=== PATIENT | male | born 1960 | race Caucasian/White ===

== ENCOUNTER 2020-04-02 12:47 | Observation (INO) ==
[2020-04-02 13:31] LABS: Basophils % 0.4 %; Eosinophils # 0.1 K/mcL (0.0-0.6); Eosinophils % 0.6 %; Hematocrit 47.5 % (37.5-50.1); Hemoglobin 15.6 g/dL (12.9-16.9); Immature Granulocytes % 0.2 % (0-4); Lymphocytes # 1.9 K/mcL (0.6-4.6); Lymphocytes % 18.4 %; Mean Corpuscular HGB Conc 32.8 g/dL (31.6-35.5); Mean Corpuscular Hemoglobin 27.4 pg (28.0-33.3); Mean Corpuscular Volume 83.3 fL (83.0-100.0); Mean Platelet Volume 9.9 fL (9.4-12.4); Monocytes # 0.5 K/mcL (0.0-1.3); Monocytes % 5.1 %; Neutrophils # 7.8 K/mcL (1.6-8.9); Platelet Count 301 K/mcL (140-400); Red Cell Distribution Width 13.3 % (11.5-14.5); Segmented Neutrophils % 75.3 %; White Blood Count 10.3 K/mcL (4.3-11.1)
[2020-04-02 13:34] LABS: Bilirubin,Urine Negative (Negative); Blood,Urine Negative (Negative); Clarity,Urine Clear (Clear); Color,Urine Colorless (Yellow); Glucose,Urine (UA) 30 mg/dL (Normal); Ketones,Urine Negative (Negative); Leukocyte Esterase,Urine Negative (Negative); Mucus,Urine Few per lpf (None-Few); Nitrite,Urine Negative (Negative); PH,Urine 7.5 pH Units (5.0-8.0); Protein,Urine Negative (Neg-Trace); Specific Gravity,Urine 1.007 (1.010-1.025); Urobilinogen,Urine Normal (Normal); WBC,Urine 0-3 per hpf (0-3)
[2020-04-02 13:36] LABS: Prothrombin Time 10.9 Seconds (9.4-12.1)
[2020-04-02 13:38] LABS: Activated Partial Thrombo Time 36.3 Seconds (26.0-36.0)
[2020-04-02 13:52] LABS: BUN/Creatinine Ratio 13 (6-26); Blood Urea Nitrogen 13 mg/dL (8-23); Calcium 9.3 mg/dL (8.6-10.3); Carbon Dioxide 25 mEq/L (23-29); Chloride 98 mEq/L (98-107); Glucose 196 mg/dL (70-105); Osmolality,Calculated 282 (280-300); Potassium 3.5 mEq/L (3.5-5.1); Sodium 133 mEq/L (136-145); Troponin I < 0.03 ng/mL (< 0.04); eGFR For African Americans > 60 (> 60); eGFR For Non-African Americans > 60 (> 60)
[2020-04-02] MEDS ORDERED: Perflutren Lipid Microsphere 1.3 ML in 0.9 % Sodium Chloride 8.7 ML IVP PRN (14:40)
[2020-04-02] MEDS ORDERED: Acetaminophen 325 MG TABLET PO PRN (14:40)
[2020-04-02] MEDS ORDERED: Ondansetron ODT 4 MG TAB.RAPDIS SL PRN (14:40)
[2020-04-02] MEDS ORDERED: Naloxone 0.4 MG/ML INJ IVP PRN (14:40)
[2020-04-02] MEDS ORDERED: MOM Conc 10 ML UD.LIQ PO PRN (17:13)
[2020-04-02] MEDS: *HR* Heparin 5,000 UNIT/ML VIAL SQ SCH (17:51)
[2020-04-03] MEDS: *HR* Heparin 5,000 UNIT/ML VIAL SQ SCH ×2 (05:55→16:35)
[2020-04-03 08:20] LABS: Hematocrit 49.5 % (37.5-50.1); Hemoglobin 16.1 g/dL (12.9-16.9); Mean Corpuscular HGB Conc 32.5 g/dL (31.6-35.5); Mean Corpuscular Hemoglobin 27.9 pg (28.0-33.3); Mean Corpuscular Volume 85.6 fL (83.0-100.0); Mean Platelet Volume 9.7 fL (9.4-12.4); Platelet Count 265 K/mcL (140-400); Red Blood Count 5.78 M/mcL (4.19-5.50); Red Cell Distribution Width 13.5 % (11.5-14.5); White Blood Count 8.1 K/mcL (4.3-11.1)
[2020-04-03 08:41] LABS: BUN/Creatinine Ratio 11 (6-26); Blood Urea Nitrogen 11 mg/dL (8-23); Calcium 9.9 mg/dL (8.6-10.3); Carbon Dioxide 29 mEq/L (23-29); Chloride 99 mEq/L (98-107); Glucose 109 mg/dL (70-105); Magnesium 2.2 mg/dL (1.6-2.6); Osmolality,Calculated 282 (280-300); Potassium 3.9 mEq/L (3.5-5.1); Sodium 136 mEq/L (136-145); Troponin I < 0.03 ng/mL (< 0.04); eGFR For African Americans > 60 (> 60); eGFR For Non-African Americans > 60 (> 60)
[2020-04-03] MEDS ORDERED: Regadenoson 0.4 MG/5 ML SYRINGE IVP ONE (08:53)
[2020-04-03] MEDS: Zinc Sulfate 220 MG CAPSULE PO SCH (11:36)
[2020-04-03] MEDS: Aspirin Enteric Coated 325 MG Tablet PO SCH (11:36)
[2020-04-03] MEDS: Loratadine 10 MG TABLET PO SCH (11:36)
[2020-04-03] MEDS: lisinopriL 10 MG TABLET PO SCH (11:36)
[2020-04-03] MEDS: Nicotine 21 MG PATCH.TD24 TD SCH (16:33)
[2020-04-04] MEDS: *HR* Heparin 5,000 UNIT/ML VIAL SQ SCH (05:01)
[2020-04-04 05:31] LABS: Hematocrit 47.6 % (37.5-50.1); Hemoglobin 15.7 g/dL (12.9-16.9); Mean Corpuscular Hemoglobin 27.4 pg (28.0-33.3); Mean Corpuscular Volume 82.9 fL (83.0-100.0); Mean Platelet Volume 9.4 fL (9.4-12.4); Platelet Count 243 K/mcL (140-400); Red Blood Count 5.74 M/mcL (4.19-5.50); Red Cell Distribution Width 13.6 % (11.5-14.5); White Blood Count 9.5 K/mcL (4.3-11.1)
[2020-04-04 05:39] LABS: BUN/Creatinine Ratio 15 (6-26); Blood Urea Nitrogen 13 mg/dL (8-23); Calcium 9.2 mg/dL (8.6-10.3); Carbon Dioxide 28 mEq/L (23-29); Chloride 101 mEq/L (98-107); Glucose 95 mg/dL (70-105); Osmolality,Calculated 282 (280-300); Sodium 136 mEq/L (136-145); eGFR For African Americans > 60 (> 60); eGFR For Non-African Americans > 60 (> 60)
[2020-04-04] MEDS ORDERED: Nitroglycerin 0.4 MG TAB.SUBL SL PRN (07:34)
[2020-04-04] MEDS: lisinopriL 10 MG TABLET PO SCH (08:52)
[2020-04-04] MEDS: Aspirin Enteric Coated 325 MG Tablet PO SCH (08:52)
[2020-04-04] MEDS: Loratadine 10 MG TABLET PO SCH (08:52)
[2020-04-04] MEDS: Nicotine 21 MG PATCH.TD24 TD SCH (08:52)
[2020-04-04] MEDS: Zinc Sulfate 220 MG CAPSULE PO SCH (08:53)
[2020-04-04] MEDS ORDERED: 0.9 % Sodium Chloride 1,000 ML ONE ×2 (11:57→12:02)
[2020-04-04] MEDS ORDERED: Heparin 1,000 UNITS/500 mL 500 ML ONE (11:57)
[2020-04-04] MEDS ORDERED: *HR* Heparin 10,000 UNIT/10 ML VIAL ONE (11:57)
[2020-04-04] MEDS ORDERED: ISOVUE-370 200 ML INFUS..BTL ONE (11:57)
[2020-04-04] MEDS ORDERED: Nitroglycerin 1,000 MCG/10 ML VIAL IV ONE (11:57)
[2020-04-04] MEDS ORDERED: *HR* FentaNYL (PF) 100 MCG/2 ML VIAL ONE (12:26)
[2020-04-04] MEDS ORDERED: *HR* Midazolam HCl 2 MG/2 ML VIAL ONE (12:26)
[2020-04-04] MEDS ORDERED: 0.9 % Sodium Chloride 1,000 ML IVC SCH (14:00)
[2020-04-04] MEDS ORDERED: carvediloL 6.25 MG TABLET PO SCH (17:00)
[2020-04-04 17:27] VITALS: BP 143/78
[2020-04-05] MEDS ORDERED: Aspirin Enteric Coated 81 MG Tablet PO SCH (09:00)
== END 2020-04-04 18:17 | disposition home or self-care (01) ==
LOC: 3BNU 12:47 → EMEROOARM 12:47 → SUATTDRO 15:22 → 3BNU 16:21
PROVIDERS: ADMIT Pharmacist; ATTEND Nurse Practitioner Adult Health

== ENCOUNTER 2022-02-16 21:18 | Observation (INO) ==
[2022-02-17] MEDS ORDERED: Iopamidol - 370 500 ML MLS IVP ONE (00:51)
[2022-02-17 01:41] LABS: Basophils % 0.2 %; Eosinophils # 1.9 K/mcL (0.0-0.6); Eosinophils % 13.2 %; Hematocrit 48.9 % (37.5-50.1); Hemoglobin 16.5 g/dL (12.9-16.9); Immature Granulocytes % 0.4 % (0-4); Lymphocytes # 1.9 K/mcL (0.6-4.6); Lymphocytes % 13.3 %; Mean Corpuscular HGB Conc 33.7 g/dL (31.6-35.5); Mean Corpuscular Hemoglobin 28.1 pg (28.0-33.3); Mean Corpuscular Volume 83.3 fL (83.0-100.0); Mean Platelet Volume 9.5 fL (9.4-12.4); Monocytes # 0.9 K/mcL (0.0-1.3); Monocytes % 6.2 %; Neutrophils # 9.4 K/mcL (1.6-8.9); Platelet Count 259 K/mcL (140-400); Red Blood Count 5.87 M/mcL (4.19-5.50); Segmented Neutrophils % 66.7 %; White Blood Count 14.1 K/mcL (4.3-11.1)
[2022-02-17] MEDS ORDERED: *HR* HYDROmorphone (PF) 1 MG/ML SYRINGE IVP ONE (01:46)
[2022-02-17] MEDS ORDERED: Ondansetron 4 MG/2 ML VIAL IVP ONE (01:46)
[2022-02-17] MEDS ORDERED: 0.9 % Sodium Chloride 1,000 ML IVC ONE (01:46)
[2022-02-17 01:49] LABS: Albumin 4.5 g/dL (3.5-5.7); Albumin/Globulin Ratio 1.3 (1.1-2.2); Bilirubin,Direct 0.3 mg/dL (0.0-0.2); Bilirubin,Total 1.3 mg/dL (0.3-1.0); Calcium 9.8 mg/dL (8.6-10.3); Globulin 3.4 g/dL (2.4-3.5); Potassium 3.7 mEq/L (3.5-5.1); Total Protein 7.9 g/dL (6.4-8.9)
[2022-02-17] MEDS ORDERED: Ondansetron 4 MG/2 ML VIAL IVP PRN (03:21)
[2022-02-17] MEDS ORDERED: Naloxone 0.4 MG/ML INJ IVP PRN (03:21)
[2022-02-17 04:34] LABS: Adenovirus Not Detected (Not Detect); Bordetella Pertussis Not Detected (Not Detect); Chlamydophila pneumoniae Not Detected (Not Detect); Coronavirus 229E Not Detected (Not Detect); Coronavirus HKU1 Not Detected (Not Detect); Coronavirus NL63 Not Detected (Not Detect); Coronavirus OC43 Not Detected (Not Detect); Human Metapneumovirus Not Detected (Not Detect); Human Rhinovirus/Enterovirus Not Detected (Not Detect); Influenza A Subtype 2009 H1 Not Detected (Not Detect); Influenza B Not Detected (Not Detect); Mycoplasma pneumoniae Not Detected (Not Detect); Parainfluenza Virus 1 Not Detected (Not Detect); Parainfluenza Virus 2 Not Detected (Not Detect); Parainfluenza Virus 3 Not Detected (Not Detect); Parainfluenza Virus 4 Not Detected (Not Detect); Respiratory Syncytial Virus Not Detected (Not Detect); SARS-CoV-2 Not Detected (Not Detect)
[2022-02-17] MEDS ORDERED: Morphine Sulfate 2 MG/ML SYRINGE IVP PRN (04:45)
[2022-02-17] MEDS: 0.9 % Sodium Chloride 1,000 ML IVC SCH ×2 (04:51→14:05)
[2022-02-17 07:11] LABS: Bacteria,Urine Few per hpf (None-Few); Bilirubin,Urine Negative (Negative); Blood,Urine Negative (Negative); Clarity,Urine Clear (Clear); Color,Urine Yellow (Yellow); Glucose,Urine (UA) Normal (Normal); Hyaline Casts,Urine Few per lpf (None Seen); Ketones,Urine Trace mg/dL (Negative); Leukocyte Esterase,Urine Negative (Negative); Mucus,Urine Few per lpf (None-Few); Nitrite,Urine Negative (Negative); PH,Urine 6.5 pH Units (5.0-8.0); Protein,Urine Trace mg/dL (Neg-Trace); RBC,Urine 0-3 per hpf (0-3); Specific Gravity,Urine > 1.030 (1.010-1.025); Urobilinogen,Urine Normal (Normal); WBC,Urine 0-3 per hpf (0-3)
[2022-02-17 09:12] LABS: INR 1.1; Prothrombin Time 12.4 Seconds (9.4-12.1)
[2022-02-17 09:24] LABS: Magnesium 1.5 mg/dL (1.6-2.6); Phosphorous 3.7 mg/dL (2.7-4.5)
[2022-02-17 09:37] LABS: Thyroid Stimulating Hormone 0.99 mcIU/mL (0.340-5.600)
[2022-02-17] MEDS: carvediloL 6.25 MG TABLET PO SCH ×2 (10:48→17:19)
[2022-02-17] MEDS: Pantoprazole 40 MG VIAL IVP SCH (10:48)
[2022-02-17] MEDS: Aspirin Enteric Coated 81 MG Tablet PO SCH ×2 (10:48→23:30)
[2022-02-17] MEDS: Fluticasone Propionate Nasal 50 MCG/SPRAY BOTTLE NS SCH (10:52)
[2022-02-17] MEDS ORDERED: Acetaminophen 325 MG TABLET PO PRN (21:11)
[2022-02-17] MEDS ORDERED: Ipratropium/Albuterol Neb 3 ML IH PRN (22:00)
[2022-02-17] MEDS: *HR* Heparin 5,000 UNIT/ML VIAL SQ SCH (23:30)
[2022-02-18 02:29] LABS: Basophils % 0.4 %; Eosinophils # 1.7 K/mcL (0.0-0.6); Eosinophils % 21.7 %; Hematocrit 38.8 % (37.5-50.1); Immature Granulocytes % 0.2 % (0-4); Lymphocytes # 1.9 K/mcL (0.6-4.6); Lymphocytes % 23.8 %; Mean Corpuscular HGB Conc 32.7 g/dL (31.6-35.5); Mean Corpuscular Volume 85.7 fL (83.0-100.0); Mean Platelet Volume 9.6 fL (9.4-12.4); Monocytes # 0.5 K/mcL (0.0-1.3); Monocytes % 6.6 %; Neutrophils # 3.8 K/mcL (1.6-8.9); Platelet Count 183 K/mcL (140-400); Red Blood Count 4.53 M/mcL (4.19-5.50); Segmented Neutrophils % 47.3 %
[2022-02-18 02:34] LABS: Hemoglobin 12.7 g/dL (12.9-16.9)
[2022-02-18 02:51] LABS: Alanine Aminotransferase 25 Units/L (7-52); Albumin 3.4 g/dL (3.5-5.7); Albumin/Globulin Ratio 1.5 (1.1-2.2); Alkaline Phosphatase 68 Units/L (34-104); Aspartate Amino Transferase 14 Units/L (13-39); BUN/Creatinine Ratio 11 (6-26); Bilirubin,Direct 0.2 mg/dL (0.0-0.2); Bilirubin,Indirect 0.5 mg/dL (0.0-1.0); Bilirubin,Total 0.7 mg/dL (0.3-1.0); Blood Urea Nitrogen 9 mg/dL (8-23); Calcium 8.1 mg/dL (8.6-10.3); Carbon Dioxide 29 mEq/L (23-29); Chloride 103 mEq/L (98-107); Globulin 2.3 g/dL (2.4-3.5); Glucose 84 mg/dL (70-105); Osmolality,Calculated 284 (280-300); Potassium 3.9 mEq/L (3.5-5.1); Sodium 138 mEq/L (136-145); Total Protein 5.7 g/dL (6.4-8.9)
[2022-02-18 03:01] LABS: Platelet Estimate Normal (Normal)
[2022-02-18] MEDS: *HR* Heparin 5,000 UNIT/ML VIAL SQ SCH (05:59)
[2022-02-18 09:27] VITALS: BP 119/78; PULSE 76; TEMP 97.8; O2SAT 94
[2022-02-18] MEDS: Pantoprazole 40 MG VIAL IVP SCH (09:31)
[2022-02-18] MEDS: Fluticasone Propionate Nasal 50 MCG/SPRAY BOTTLE NS SCH (09:35)
[2022-02-18] MEDS: carvediloL 6.25 MG TABLET PO SCH (09:36)
[2022-02-18] MEDS: Aspirin Enteric Coated 81 MG Tablet PO SCH (09:36)
[2022-02-18] MEDS ORDERED: Tiotropium 10 INH DOSE IH SCH (10:00)
== END 2022-02-18 13:28 | disposition home or self-care (01) ==
LOC: EMEROOARM 21:18 → 3NENU 21:18 → SUATTDRO 02-17 03:15 → 3NENU 02-17 04:08
PROVIDERS: ADMIT Internal Medicine; ATTEND Student in an Organized Health Care Education/Training Program